=== PATIENT | male | born 1995 | race Caucasian/White ===

== ENCOUNTER 2018-07-03 14:47 | Emergency (ER) | payer OTHER ==
[2018-07-03] MEDS: DEXAMETHASONE 10 MG/ML 1 ML INJ IM (16:32)
[2018-07-03] MEDS: KETOROLAC 30 MG INJ IM (16:33)
== END 2018-07-03 16:43 | disposition home or self-care (01) ==
LOC: FTE 14:47
DX: M54.5 Low back pain (principal); F17.210 Nicotine dependence, cigarettes, uncomplicated
CPT/HCPCS: 96372; 99284-25

== ENCOUNTER 2018-07-20 13:56 | Emergency (ER) | payer OTHER ==
[2018-07-20] MEDS: KETOROLAC 30 MG INJ IM (16:44)
[2018-07-20] MEDS: METHOCARBAMOL 750 MG TAB PO (16:44)
== END 2018-07-20 17:32 | disposition home or self-care (01) ==
LOC: FTE 13:56
DX: M54.5 Low back pain (principal); F17.210 Nicotine dependence, cigarettes, uncomplicated
CPT/HCPCS: 96372; 99284-25